=== PATIENT | female | born 1965 | race African-American/Black ===

== ENCOUNTER → 2017-03-28 | Outpatient (CLI) | payer OTHER ==
[~2017-03-28] MED LIST: AZAT50TA20 PO; CALC-463 PO; CELE200C PO; CETI10TA22 PO; CICL15CR2 TP; CLOB15CR TP; DESO15OI3 TP; DOCU-109 PO; FERR-26 PO; FLUT1DIS3 IH; FLUT9.9S NS; FURO-69 PO; GABA-585 PO; HYDR200T PO; MAGN1TAB PO; MONT10TA9 PO; OMEP20TA63 PO; PRED20TA PO; PROAIR HFA8.5 GM INH; RIZA10TA PO; TIZA4CAP3 PO; TOLT4CAP PO; WARF5TAB7 PO; [UNRECOGNIZED DRUG - OTHER]
--- NOTE | 2017-03-28 19:37 | PAIN ---
DATE OF SERVICE: 03/28/2017 INITIAL CONSULTATION FOR PAIN CLINIC CHIEF COMPLAINT: Neck and bilateral upper extremity pain, left greater than right. HISTORY OF PRESENT ILLNESS: This is a 51-year-old female who presents with history of pain in the base of the neck and shoulders radiating to the upper extremities for about 4 years. 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 The patient reports it is constant, sharp, stabbing, throbbing, shooting, radiating with numbness and tingling, cramping, aching, can even be cold sensations in the arms, again somewhat worse on the left than the right, but present bilaterally. The patient did have an MRI scan of cervical spine showing some significant multifocal degenerative disk disease, worse at C6-C7 with broad-based disk bulge, left paracentral disk protrusion, producing moderate central canal narrowing, advanced left neuroforaminal narrowing and mild right neuroforaminal narrowing as well as C5-C6 showing moderate central canal narrowing and moderate bilateral neuroforaminal narrowing from a broad-based disk bulge at that level as well. The patient reports she has had some physical therapy. She is doing exercises on her own and continues to do these without significant long-term improvement, but does feel better. She also has frequent massage performed and has even had chiropractic treatment in the past. The patient reports it wakes her from sleep. Even for a few hours she is not able to sleep because of the pain. It does affect her ability to walk as well. The patient rates her disability from 0-10, 10 being the worst, an 8 with family and home responsibilities, recreation, social activity, occupation and self care; 9 with sexual behavior, 10 with life support activities. The patient reports no complete loss of motor function, but significant fatigability especially of the left upper extremity. She has been dropping items with her left hand occasionally, but not at all times. PAST MEDICAL HISTORY: Significant for sarcoidosis, shortness of breath, history of blood clots and is on anticoagulation. PAST SURGICAL HISTORY: Includes right bunionectomy, lung biopsy, thyroid biopsy, tonsillectomy, and cystoscopy. CURRENT MEDICATIONS: Include warfarin, Celebrex, prednisone, montelukast, Zyrtec, Plaquenil, Lasix, Imuran, gabapentin, Detrol, albuterol inhaler, fluticasone inhalers, desonide, clobetasol, Maxalt, iron, Gaviscon, Colace, calcium and eyedrops. ALLERGIES: THE PATIENT IS ALLERGIC TO VIGAMOX. FAMILY HISTORY: Significant for breast cancer, prostate cancer and diabetes. SOCIAL HISTORY: The patient does not smoke, does not drink alcohol, is , lives with her spouse, has one child living at home and lives in [place], [place]. 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 REVIEW OF SYSTEMS: The patient's review of systems is positive for those items mentioned in the history of present illness. All systems review is complete, full and well documented on the patient's chart and otherwise negative other than what is documented. PHYSICAL EXAMINATION: VITAL SIGNS: Today, the patient's blood pressure is 126/71, pulse 75, respirations 18, temperature 98.2 degrees Fahrenheit, height is 69 inches, weight is 235 pounds. GENERAL: The patient is awake, alert, oriented, appropriate, has very pleasant demeanor. HEENT: Shows normocephalic, atraumatic. Extraocular movements are intact, symmetrical. Oral cavity, mucous membranes are moist and pink. Dentition is intact. NECK: Shows anterior throat supple without palpable lymphadenopathy noted. Swallow reflex is symmetrical. CHEST: Shows normal on inspection. Breath sounds are clear to auscultation bilaterally. HEART: Shows S1 and S2 clear. ABDOMEN: Soft, nontender, nondistended. No palpable organomegaly, no rebound or guarding demonstrated. BACK: Shows spine grossly in midline, normal-appearing cervical lordotic curvature, thoracic kyphotic curvature, and lumbar lordotic curvature. Cervical paraspinous musculature shows some [id number] tenderness with palpation in the middle and lower posterior cervical paraspinous muscles, but appears roughly symmetrical. With palpation in the superior medial and lateral trapezius, much more tender on the left than the right, but without significant radiation, no trigger points. The patient does show good rotational motion of the cervical spine both laterally as well as extension and flexion without significant difficulty or pain reported. EXTREMITIES: Upper extremities show deep tendon reflexes at 2+ in the biceps and triceps tendons. Motor exam is approximately 4 on a scale of 5 with left senior unix administrator strength and 5/5 on the right. Peripheral pulses are 2+, radial distribution. No peripheral edema is noted. No clubbing, no cyanosis. Upper extremities are warm and dry to touch, equal in color and appearance. Shoulder shrug is strong and intact without loss of strength on resistance, but with some minor pain reported in the base of the neck and left shoulder. With abduction has similar results with pain in the left shoulder and neck, but without radiation to the arms. IMPRESSION: 1. This is a 51-year-old female with approximately a 4-year history of pain in the base of the neck and upper extremity in a radicular fashion, worse on the left than the right. 2. MRI scan of cervical spine as noted. 3. Anticoagulation. 4. Sarcoidosis. PLAN: Options were discussed with the patient including conservative medical management with physical therapy and interventional techniques. She has done most physical therapies and continues to do exercises on her own. We discussed interventional techniques. We discussed a cervical epidural steroid injection using description as well as anatomical models to describe the procedure. The patient will first need preauthorization with her insurance provider, also check with her prescribing physician for permission to hold the Coumadin with PT and INR pending. If deemed necessary and appropriate, we will have her do this once we have heard from her primary care physician and plan for cervical epidural steroid injection once that has normalized. POOL IZAGUIRRE MD DR: RENE/mando JOB#: [id number] / [id number]
== END | disposition home or self-care (01) ==
LOC: PNCL 08:05
PROVIDERS: ATTEND Anesthesiology
DX: M50.123 Cervical disc disorder at C6-C7 level with radiculopathy (principal); M50.223 Other cervical disc displacement at C6-C7 level
CPT/HCPCS: 99214

== ENCOUNTER → 2017-04-11 | Outpatient (CLI) | payer OTHER ==
[~2017-04-11] MED LIST changes: +IOHEXOL 180 MG/ML 10 ML VIAL. ONE; +methylPREDNISolone ACETATE 40 MG/ML VIAL. ONE; +methylPREDNISolone ACETATE 80 MG/ML VIAL. ONE
--- NOTE | 2017-04-11 20:10 | PAIN ---
DATE OF SERVICE: 04/11/2017 DIAGNOSIS: Cervical radiculopathy with cervical herniated disk and cervical degenerative disk disease. HISTORY OF PRESENT ILLNESS: The patient is a 51-year-old female who returns for followup status post initial evaluation and clearance to hold her Coumadin. She had been off this now for about 6 days and Lovenox. In the meantime, she has been off of that for 24 hours now, returns with pains in the base of the neck, mostly in the right upper extremity as it was previously, radiating to the arm and hand, tingling, burning, aching, sharp and shooting radiating constant. The patient reports this is from an 8-9 on a scale of 10. No significant changes. The patient reports no new motor or sensory deficits. It does awaken her from sleep at night. She has to reposition, take pain medication or get out of bed, but she is able to get back to sleep. PHYSICAL EXAMINATION: VITAL SIGNS: The patient's blood pressure is 117/77, pulse 80, respirations 18, temperature 98.3 degrees Fahrenheit. Height is 69 inches, weight is 228 pounds. GENERAL: The patient is awake, alert, oriented, appropriate, very pleasant demeanor. HEENT: Head shows normocephalic, atraumatic. Extraocular movements are intact and symmetrical. Oral cavity, mucous membranes are moist and pink. Dentition is intact. NECK: Shows anterior throat supple without palpable lymphadenopathy noted. Swallow reflex is symmetrical. CHEST: Shows normal on inspection. Breath sounds clear to auscultation bilaterally. HEART: Shows S1 and S2 clear. ABDOMEN: Soft, nontender, nondistended. No palpable organomegaly is noted. No rebound or guarding demonstrated. BACK: Shows spine grossly midline. Cervical paraspinous musculature shows some moderate tenderness to palpation, but is symmetrical, good rotation of motion; however, both laterally as well as extension and flexion with only minor tenderness with extension. EXTREMITIES: Upper extremity showed deep tendon reflexes 2+ in the biceps and triceps tendons. Motor exam is approximately 4 on a scale of 5 with left hydrography teacher strength and 5/5 on the right. Peripheral pulses are 2+. Options were discussed with the patient. The patient's old chart was reviewed as her current medication regimen updated. Current review of systems updated today as well. We will proceed with a cervical epidural steroid injection with fluoroscopic guidance. Risks were again discussed including, but not limited to bleeding, infection, possibility of epidural hematoma and subsequent neurologic compromise, dural puncture, headaches, spinal cord and/or nerve damage, side effects of steroid medication and poor results regarding pain control. The patient understands and wishes to proceed. The patient will return to clinic in approximately 2 weeks for followup, was counseled on return appointment, activity level and side effects to be aware of. DIAGNOSIS: Cervical radiculopathy with cervical degenerative disease, cervical herniated disk. PROCEDURE: Cervical epidural steroid injection in translaminar approach at C6-C7 level using C-arm fluoroscopic guidance under sterile prep and drape using local anesthetic. MEDICATIONS INJECTED: Total 120 mg of Depo-Medrol plus 5 mL of preservative-free normal saline and 2 mL of Isovue for contrast. CONDITION AT DISCHARGE: Stable. The patient tolerated the procedure well, had no complications. POOL IZAGUIRRE MD DR: RENE/mando JOB#: [id number] / [id number]
== END | disposition home or self-care (01) ==
LOC: PNCL 07:39
PROVIDERS: ATTEND Anesthesiology
DX: M50.123 Cervical disc disorder at C6-C7 level with radiculopathy (principal); Z88.1 Allergy status to other antibiotic agents
CPT/HCPCS: 62321; J1030; J1040

== ENCOUNTER → 2017-04-25 | Outpatient (CLI) | payer OTHER ==
[~2017-04-25] MED LIST changes: -IOHEXOL 180 MG/ML 10 ML VIAL. ONE; -methylPREDNISolone ACETATE 40 MG/ML VIAL. ONE; -methylPREDNISolone ACETATE 80 MG/ML VIAL. ONE
--- NOTE | 2017-04-25 12:13 | PAIN ---
DATE OF SERVICE: 04/25/2017 DIAGNOSES: Cervical radiculopathy with cervical degenerative disk disease and cervical herniated disk. HISTORY OF PRESENT ILLNESS: The patient is a 51-year-old female who returns for followup status post cervical epidural steroid injection x 1. The patient reports about 60-70% improvement initially, but the pain very much improved by the next day after the injection with some still radiating pain with some numbness and tingling radiating into the right arm and hand, tingling in the first finger and the thumb, also in the biceps musculature, more on the right than the left at this time but present bilaterally with throbbing, aching pain, rates a 7 on a scale of 10 at its worst and at its least an average. The patient reports it is dull, tingling, shooting pain again, beginning to return to a mild extent but much improved after the first injection. The patient reports no new motor or sensory deficits or other complaints. She has been increasing her activities with greater ease and comfort, is back on her Coumadin as instructed after her last injection. The patient reports the pain is awakening her from sleep again; however, initially, she was doing much better without any awakening from sleep from the pain but now is doing better about every 4 hours or so. She can reposition, take pain medicine, get out of bed and she will get back to sleep. The patient reports no new motor or sensory deficits. No new changes. PHYSICAL EXAMINATION: VITAL SIGNS: The patient's blood pressure 120/68, pulse 76, respirations 18, temperature is 98.1 degrees Fahrenheit. Height is 69 inches, weighs 239 pounds. GENERAL: The patient is awake, alert, oriented, appropriate, very pleasant demeanor. HEENT: Head shows normocephalic, atraumatic. Extraocular movements are intact and symmetrical. Oral cavity shows mucous membranes moist and pink. Dentition is intact. NECK: Shows anterior throat supple without palpable lymphadenopathy noted. Swallow reflex is symmetrical. CHEST: Shows normal on inspection. Breath sounds clear to auscultation bilaterally. HEART: Shows S1 and S2 clear. ABDOMEN: Soft, nontender, nondistended. BACK: Shows spine grossly midline. Cervical paraspinous musculature shows symmetrical with somewhat more loose musculature on exam today than previously with less tight tenderness, but still moderately tender in the inferior aspect of the cervical paraspinous muscles bilaterally diffusely in the superior medial trapezius with upper extremities showed deep tendon reflexes at 2+ in the biceps and triceps tendons. Motor exam is approximately 4 on a scale of 5 with left supervisor files and 5/5 on the right. Biceps and triceps flexion again 4/5 left, 5/5 on the right. Peripheral pulses are 2+ radial distribution. Options were discussed with the patient and the patient's old chart was reviewed as her current medication regimen updated. Current review of systems updated today as well. We will preauthorize the patient for a second cervical epidural steroid injection. She did very well with the first, but the pain returning now in a radicular fashion as noted. The patient will be instructed with her Coumadin as far as holding this and transitioning to Lovenox as she has done previously as well. POOL IZAGUIRRE MD DR: RENE/mando JOB#: [id number] / [id number]
== END | disposition home or self-care (01) ==
LOC: PNCL 07:46
PROVIDERS: ATTEND Anesthesiology
DX: M50.10 Cervical disc disorder with radiculopathy, unspecified cervical region (principal); R20.0 Anesthesia of skin
CPT/HCPCS: 99212

== ENCOUNTER → 2017-05-09 | Outpatient (CLI) | payer OTHER ==
[~2017-05-09] MED LIST changes: +CYCL10TA2 PO; +IOHEXOL 180 MG/ML 10 ML VIAL. ONE; +methylPREDNISolone ACETATE 40 MG/ML VIAL. ONE; +methylPREDNISolone ACETATE 80 MG/ML VIAL. ONE
--- NOTE | 2017-05-09 09:08 | PAIN ---
DATE OF SERVICE: 05/09/2017 DATE OF SERVICE: 05/09/2017 DIAGNOSES: Cervical radiculopathy with cervical degenerative disk disease, cervical herniated disk. HISTORY OF PRESENT ILLNESS: This is a 51-year-old female who returns for followup status post cervical epidural steroid injection x 1. The patient reports approximately 60% improvement after the first injection. We had had her back for preauthorization and she has achieved this now for second injection. The patient would like to proceed. Still significant pain in the base of the neck and shoulders, worse on the right side than the left. The patient reports it is 6 on a scale 10 at all times, worse and easiest and average. It is aching, sharp, shooting pain in the right arm, also some low back pain is a secondary complaint. The patient reports been doing better with lying down. She is sleeping through the night. It wakens her occasionally, but she repositions and gets back to sleep. The patient reports no new motor or sensory deficits, no new bowel or bladder incontinence or other complaints. The patient has been off of her Coumadin now for 5 days and has been off of her Lovenox now for 24 hours. PHYSICAL EXAMINATION: VITAL SIGNS: Today, the patient's blood pressure is 115/76, pulse 77, respirations 18, temperature 97.9 degrees Fahrenheit. Height is 69 inches, weight is 230 pounds. GENERAL: The patient is awake, alert, oriented, appropriate, very pleasant demeanor. HEENT: Head shows normocephalic, atraumatic. Extraocular movements are intact, symmetrical. Oral cavity, mucous membranes are moist and pink. Dentition is intact. NECK: Shows anterior throat supple without palpable lymphadenopathy noted. Swallow reflex is symmetrical. CHEST: Shows normal on inspection. Breath sounds are clear to auscultation bilaterally. HEART: Shows S1 and S2 clear, no murmurs auscultated. ABDOMEN: Obese, soft, nontender, nondistended. BACK: Shows spine grossly midline. Cervical paraspinous musculature shows some symmetrical musculature on inspection with palpation shows some moderate tenderness diffusely in the middle and lower distribution of paraspinous muscles in the cervical distribution, also superiorly in the trapezius, slightly more on the right than the left, but again symmetrical without trigger points, without radiation of pain. The patient shows good rotational motion of cervical spine, both laterally as well as full extension and full forward flexion without significant limitation. EXTREMITIES: Upper extremities showed deep tendon reflexes 2+ in the biceps and triceps tendons. Motor exam is strong with electric range preparer strength rated at 5/5 as is biceps and triceps flexion on the right. On the left, it is 4 on a scale 5 with electric range preparer strength, biceps and triceps flexion. Options were discussed with the patient and the patient's old chart was reviewed as her current medication regimen updated. Current review of systems updated today as well. We will proceed with a second cervical epidural steroid injection today with fluoroscopic guidance. Risks were again discussed including, but not limited to bleeding, infection, possibility of epidural hematoma and subsequent neurologic compromise, dural puncture, headaches, spinal cord and/or nerve damage, side effects of steroid medication and poor results regarding pain control. The patient understands and wishes to proceed. The patient will return to clinic in approximately 2 weeks for followup. She was counseled as to return appointment, activity level and side effects to be aware of. DIAGNOSES: Cervical radiculopathy with cervical herniated disk and cervical degenerative disk disease. PROCEDURE: Cervical epidural steroid injection in translaminar approach at C6-C7 using C-arm fluoroscopic guidance under sterile prep and drape and local anesthetic. MEDICATIONS INJECTED: Total of 120 mg Depo-Medrol plus 5 mL of preservative-free normal saline and 2 mL of Isovue for contrast. CONDITION AT DISCHARGE: Stable. The patient tolerated procedure well, had no complications. POOL IZAGUIRRE MD DR: RENE/mando JOB#: [id number] / [id number]
== END | disposition home or self-care (01) ==
LOC: PNCL 07:46
PROVIDERS: ATTEND Anesthesiology
DX: M50.123 Cervical disc disorder at C6-C7 level with radiculopathy (principal); Z88.1 Allergy status to other antibiotic agents
CPT/HCPCS: 62321; J1030; J1040

== ENCOUNTER → 2017-11-16 | Outpatient (CLI) | payer OTHER | END | disposition home or self-care (01) | LOC: PNCL 08:57 | DX: M50.10 Cervical disc disorder with radiculopathy, unspecified cervical region (principal); M51.16 Intervertebral disc disorders with radiculopathy, lumbar region | CPT/HCPCS: 99212 ==

== ENCOUNTER → 2017-12-05 | Outpatient (CLI) | payer OTHER ==
[~2017-12-05] MED LIST changes: -AZAT50TA20 PO; -CALC-463 PO; -CELE200C PO; -CETI10TA22 PO; -CICL15CR2 TP; -CLOB15CR TP; -CYCL10TA2 PO; -DESO15OI3 TP; -DOCU-109 PO; -FERR-26 PO; -FLUT1DIS3 IH; -FLUT9.9S NS; -FURO-69 PO; -GABA-585 PO; -HYDR200T PO; +IOHEXOL 180 MG/ML 10 ML VIAL.; -IOHEXOL 180 MG/ML 10 ML VIAL. ONE; -MAGN1TAB PO; -MONT10TA9 PO; -OMEP20TA63 PO; -PRED20TA PO; -PROAIR HFA8.5 GM INH; -RIZA10TA PO; -TIZA4CAP3 PO; -TOLT4CAP PO; -WARF5TAB7 PO; -[UNRECOGNIZED DRUG - OTHER]; +methylPREDNISolone ACETATE 40 MG/ML VIAL.; -methylPREDNISolone ACETATE 40 MG/ML VIAL. ONE; +methylPREDNISolone ACETATE 80 MG/ML VIAL.; -methylPREDNISolone ACETATE 80 MG/ML VIAL. ONE
== END ==
LOC: PNCL 10:12
DX: M50.123 Cervical disc disorder at C6-C7 level with radiculopathy (principal)
CPT/HCPCS: 62321; J1030; J1040; Q9965

== ENCOUNTER → 2017-12-27 | Outpatient (CLI) | payer OTHER | END | disposition home or self-care (01) | LOC: PNCL 10:36 | DX: M50.10 Cervical disc disorder with radiculopathy, unspecified cervical region (principal); M51.16 Intervertebral disc disorders with radiculopathy, lumbar region; M25.512 Pain in left shoulder | CPT/HCPCS: 99212 ==

== ENCOUNTER → 2021-03-02 | Outpatient (CLI) | payer OTHER ==
[~2021-03-02] MED LIST changes: +ALBU2.5V8 INH; +AZAT50TA20 PO; +BUDE10.2 IH; +CALC-463 PO; +CARB15DR3 EACHEYE; +CELE100C PO; +CELE200C PO; +CETI10TA74 PO; +CICL15CR2 TP; +CLOB15CR TP; +CYCL10TA2 PO; +CYCL1DRO EACHEYE; +DESO15OI3 TP; +DEXT15DR5 EACHEYE; +DOCU-109 PO; +FERR325T14 PO; +FLUT1DIS3 IH; +FLUT9.9S NS; +FURO-69 PO; +GABA-585 PO; +HYDR200T71 PO; -IOHEXOL 180 MG/ML 10 ML VIAL.; +MAGN1TAB PO; +MAGN400C PO; +MONT10TA49 PO; +OMEP20TA63 PO; +OXYB5TAB10 PO; +PRED20TA PO; +RIVA20TA2 PO; +RIZA10TA PO; +TIZA4CAP3 PO; +TOLT4CAP PO; +WARF-31 PO; +[UNRECOGNIZED DRUG - OTHER]; +diclofenac gel TOP; -methylPREDNISolone ACETATE 40 MG/ML VIAL.; -methylPREDNISolone ACETATE 80 MG/ML VIAL.
--- NOTE | 2021-03-02 11:11 | PDOC1 ---
INITIAL PAIN CONSULT DATE OF SERVICE: DOS: DATE: 03/02/21 TIME: 11:03 CHIEF COMPLAINT: Chief Complaint: Neck and bilateral upper extremity pain Low back and left lower extremity pain HISTORY OF PRESENT ILLNESS: 55-year-old female resents with history of pain base the neck and shoulders upper extremities left greater than right but present bilaterally also low back pain left lower extremity pain for about 3 months not the result of any specific injury or accident that she is aware of but has had significant pain the base the neck and shoulders and had this many years ago as well with good response to interventional treatments by her report. Patient reports the pain in the base of neck and shoulders upper extremities rating the posterior deltoid posterior triceps into the forearms with anterior and posteriorly as well as the biceps into the hand and finger some numbness and tingling in the thumb and first finger on both hands patient reports difficulty with fine motor movements but has no loss of motor function she has not been dropping any items with her hands patient is had physical therapy in the past nothing recently but is been doing stretching strength exercises on her own that she learned previously patient reports it wakes her up through the night many times does not affect her bowel bladder control does affect her ability to walk with pain in the low back and left leg patient reports pain is constant sharp stabbing throbbing shooting in the neck and shoulders upper extremities with tingling and numbness in the hands and arms as well. She describes her low back is aching and cramping with radiating pain in left lower extremity mostly in the posterior gluteus lateral thigh and anterior thigh. Patient rates her disability rating 0-10 10 being the worst is an 8 family home responsibilities recreation social activity sexual preoccupation self-care and life support activities. Patient did have MRI scan of the cervical and lumbar spine cervical spine showing most advanced degenerative changes C5-6 and C6-7 with associated reversal of the usual cervical lordosis left posterior disc protrusion with associated marginal osteophytes resulting in left C7 foraminal stenosis C5-6 with encroachment on the C6 neuroforamina without naomi foraminal stenosis lumbar spine showing mild loss of disc height at L4-5 and advanced hypertrophic degenerative facet changes with moderate to severe hypertrophic degenerative changes at L5-S1 as well. PAST MEDICAL HISTORY: PMH: Arthritis, gastroesophageal reflux, shortness of breath, sickle cell trait, sarcoidosis PREVIOUS SURGERIES: Past Surgical Hx: Bunionectomy, thyroid biopsy, lung biopsy, tonsillectomy CURRENT MEDICATIONS: Current Meds: Active Scripts Medications Dose Route/Sig Max Daily Dose Days Date Category Magnesium (Magnesium Oxide) 400 Mg Capsule 1 Cap PO BID 11/16/17 Reported Restasis (Cyclosporine) 1 Each Droperette 1 Drop EACHEYE BID 11/16/17 Reported Artificial Tears Eye Drops (Dextran 70/Hypromellose) 15 Ml Drops 1 Drop EACHEYE QID 11/16/17 Reported Symbicort 160-4.5 Mcg Inhaler (Budesonide/Formoterol Fumarate) 10.2 Gm Hfa.aer.ad 2 Puff IH BID 11/16/17 Reported Cyclobenzaprine Hcl 10 Mg Tablet 1 Tab PO TID 05/09/17 Reported Ciclopirox (Ciclopirox Olamine) 15 Gm Cream..g. 15 Gm TP PRN 03/28/17 Reported [gnc supp] DAILY 03/28/17 Reported Calcium + Vitamin D3 Gummies (Calcium Phosphate Trib/Vit D3) 1 Each Tab.chew 3 Each PO DAILY 03/28/17 Reported Colace (Docusate Sodium) 100 Mg Capsule 100 Mg PO DAILY 03/28/17 Reported Gaviscon Es Tablet Chew (Magnesium Carbonate/Al Hydrox) 1 Each Tab.chew 1 Each PO PRN 03/28/17 Reported Ferrous Sulfate 325 Mg Tablet 1 Tab PO BID 03/28/17 Reported Maxalt (Rizatriptan Benzoate) 10 Mg Tablet 10 Mg PO PRN 03/28/17 Reported Clobetasol Propionate 15 Gm Cream..g. 1 Karen TP BID 03/28/17 Reported Desonide 15 Gm Oint...g. 15 Gm TP 03/28/17 Reported Zanaflex (Tizanidine Hcl) 4 Mg Capsule 4 Mg PO QID PRN 03/28/17 Reported Proair Hfa Inhaler (Albuterol Sulfate) 8.5 Gm Hfa.aer.ad 2 Puff INH PRN Q6HRS PRN 03/28/17 Reported Flonase Allergy Relief (Fluticasone Propionate) 9.9 Ml [place].susp 1 Sprays NS BID 03/28/17 Reported Montelukast Sodium Tablet (Montelukast Sodium) 10 Mg Tablet 10 Mg PO HS 03/28/17 Reported Zyrtec (Cetirizine Hcl) 10 Mg Tablet 1 Tab PO DAILY 03/28/17 Reported Detrol La (Tolterodine Tartrate) 4 Mg Cap.er.24h 1 Cap PO DAILY 03/28/17 Reported Neurontin (Gabapentin) 100 Mg Capsule 100 Mg PO TID 03/28/17 Reported Prilosec Otc (Omeprazole Magnesium) 20 Mg Tablet.dr 20 Mg PO BID 03/28/17 Reported Plaquenil (Hydroxychloroquine Sulfate) 200 Mg Tablet 200 Mg PO BID 03/28/17 Reported Prednisone 20 Mg Tablet 5 Mg PO DAILY 03/28/17 Reported Warfarin Sodium 5 Mg Tablet 9 Mg PO DAILY 03/28/17 Reported ALLERGIES; Allergies: Coded Allergies: moxifloxacin HCl (Verified Allergy, Mild, swelling, 08/28/13) FAMILY HISTORY: Family Hx: Diabetes, cancer, hypertension SOCIAL HISTORY: Social Hx: Patient is nondrug alcohol does not smoke not use any illegal illicit recreational drugs is lives with his spouse is locally in [facility] REVIEW OF SYSTEMS: ROS: Positive for those items mentioned in history of present illness, all systems are reviewed, otherwise negative ,and are complete full and well-documented on patient's chart. PHYSICAL EXAM: VS: Blood pressure is 113/65 pulse 61 respirations 16 temperature is 98.0 F height is 5 feet 9 inches weight is 230 cubic PE: PHYSICAL EXAMINATION: GENERAL: The patient is awake, alert, oriented, appropriate, very pleasant in demeanor. HEENT: Shows normocephalic, atraumatic. Extraocular movements are intact and symmetrical. Oral cavity: Mucous membranes moist and pink. Dentition is intact. NECK: Shows anterior throat supple without palpable lymphadenopathy noted. Swallow reflex symmetrical. CHEST: Shows normal on inspection. Breath sounds are clear bilaterally, distant but no rales rhonchi or wheezes auscultated bilaterally. HEART: Shows S1, S2 clear. No murmurs auscultated. ABDOMEN: Soft, nontender, nondistended, obese. No palpable organomegaly is noted. No rebound or guarding demonstrated. BACK: Shows spine grossly in the midline. Normal-appearing cervical lordotic curvature. Cervical paraspinous muscles show symmetrical inspection on palpation some moderate tenderness diffusely throughout the upper middle lower distribution the paraspinous muscles bilaterally slightly worse on the left than the right also into the superior medial trapezius more on the left than the right but without specific trigger points atrophy hypertrophy or asymmetry. Patient shows full rotation of motion of the cervical spine both laterally greater than 45 degrees closer to 90 degrees as well as full extension full forward flexion without significant exacerbation of pain. There is slightly increased thoracic kyphosis, some minor flattening of the lumbar lordotic curvature. Lumbar paraspinous muscles show symmetrical on inspection, on palpation shows some moderate tenderness diffusely throughout the upper, middle and lower distribution of the paraspinous muscles bilaterally and also into the lower thoracic paraspinous musculature, firm and tender, but without specific trigger points, without radiation of pain. The patient has good rotational motion of the lumbar spine, both laterally as well as extension and flexion without significant difficulty. No tenderness over the spinous processes, sacrum or sacroiliac regions. EXTREMITIES: Lower extremities show deep tendon reflexes 1+ in the patellar and tendo calcaneus tendons. Motor exam is 5 on a scale of 5 with right dorsiflexion, extension, quadriceps and hamstring flexion and 4/5 on the left. Peripheral pulses are 1+ posterior tibial. No peripheral edema is noted bilaterally. Lower extremities are warm and dry to touch, equal in color and appearance. Upper extremity show deep tendon reflexes 2+ in the bicep and tricep tendons, motor exam is 4 to scale 5 with left retail shift leader strength bicep and tricep flexion and 5 out of 5 on the right. Peripheral pulses are 2+ radial no peripheral edema is noted. SKIN: Shows warm and dry, good turgor. No edema. No sores, rashes or bruising throughout. IMPRESSION: Impression: 55-year-old female with approximate 3-month history increasing pain base of neck and shoulders upper extremities and radicular fashion worse on the left than the right Low back and left lower extremity pain in a radicular fashion as well. MRI scans lumbar and cervical spines as noted Arthritis History of sickle cell trait History of sarcoidosis Plan: Options were discussed with the patient including conservative medical management is continued physical therapies and interventional techniques. Patient elects interventional techniques. We will check with her recorder helper seismograph first to hold Xarelto for 3 days prior to potential interventional injection cervical epidural steroid injection. If deemed safe and appropriate, will have patient return and plan on cervical epidural steroid injection at that time. In the meantime, will try Medrol Dosepak, patient was given instructions well side effects aware with the medication. POOL IZAGUIRRE MD Mar 02, 2021 11:11
== END | disposition home or self-care (01) ==
LOC: PNCL 10:53
PROVIDERS: ATTEND Anesthesiology
DX: M79.602 Pain in left arm (principal); M79.601 Pain in right arm; M79.605 Pain in left leg; M19.90 Unspecified osteoarthritis, unspecified site; K21.9 Gastro-esophageal reflux disease without esophagitis; Z79.899 Other long term (current) drug therapy; Z98.890 Other specified postprocedural states; Z82.49 Family history of ischemic heart disease and other diseases of the circulatory system; Z83.3 Family history of diabetes mellitus; Z88.8 Allergy status to other drugs, medicaments and biological substances
CPT/HCPCS: 99214; G0463

== ENCOUNTER → 2021-03-19 | Outpatient (CLI) | payer OTHER ==
[~2021-03-19] MED LIST changes: +IOHEXOL 180 MG/ML 10 ML VIAL. ONE; +methylPREDNISolone ACETATE 80 MG/ML VIAL. ONE
--- NOTE | 2021-03-19 08:26 | PDOC ---
Progress Note - Pain Clinic Date of Service: DOS: DATE: 03/19/21 TIME: 08:22 Diagnosis: Dx: Cervical radiculopathy with cervical degenerative disease and cervical herniated disc Lumbar radiculopathy with lumbar degenerative disc disease History or Present Illness: HPI: 55-year-old female returns for follow-up status post evaluation and clearance to hold Xarelto she been off her Xarelto now for 3 days reports still significant pain the base of neck and left shoulder left upper extremity rating into the posterior deltoid anterior deltoid into the biceps and triceps in the lateral aspect of the forearm into the thumb and first finger patient reports still tingling burning cramping radiating can be constant with activity unbearable at times with repetitive motions and weightbearing driving a car with her left arm disturbs her sleep about every 3-4 hours patient reports is a 6 on a scale of 10 is worst average and least is a 6 today as well. Patient reports occasional pain on the right shoulder but mostly in the left and on the left arm. Patient reports no focal deficits but significant fatigability with left upper extremity with repetitive motion and weightbearing. Physical Exam: VS: Blood pressure is 144/79 pulse 64 respirations 18 temperature 98.1 F height 5 feet 9 inches weight is 233 pounds PE: PHYSICAL EXAMINATION: GENERAL: The patient is awake, alert, oriented, appropriate, very pleasant in demeanor HEENT: Shows normocephalic, atraumatic. Extraocular movements are intact and symmetrical. Oral cavity: Mucous membranes moist and pink. Dentition is intact. NECK: Shows anterior throat supple without palpable lymphadenopathy noted. Swallow reflex symmetrical. CHEST: Shows normal on inspection. Breath sounds are clear bilaterally, no rales or rhonchi. HEART: Shows S1, S2 clear. No murmurs auscultated. ABDOMEN: Soft, nontender, nondistended, obese. No palpable organomegaly is noted. BACK: Shows spine grossly in the midline. Normal-appearing cervical lordotic curvature. Cervical paraspinous muscles show symmetrical with inspection on palpation some moderate tenderness diffusely more on the left than the right in the inferior aspect the cervical paraspinous musculature as well as in the superior medial trapezius patient is full rotation motion cervical spine both laterally greater than 45 degrees closer to 90 degrees as well as full extension full forward flexion without significant difficulty or pain reported. There is slightly increased thoracic kyphosis, some minor flattening of the lumbar lordotic curvature. EXTREMITIES: Upper extremities show deep tendon reflexes 2+ in the biceps and tr iceps tendons. Motor exam is 5 on a scale of 5 with right enterprise manager, biceps and triceps flexion and 4/5 on the left. Peripheral pulses are 2+ radial. No peripheral edema is noted bilaterally. Upper extremities are warm and dry to touch, equal in color and appearance. SKIN: Shows warm and dry, good turgor. No edema. No sores, rashes or bruising throughout. Procedure: Procedure: Options discussed with the patient. Patient's old chart was reviewed as her current medication regimen updated current review of systems updated today as well. We will proceed with a cervical epidural steroid injection stable fluoroscopic guidance. Risks were discussed including but not limited to: Bleeding, infection, possibility of epidural hematoma and subsequent neurological compromise, dural puncture, headaches, spinal cord and/or nerve damage, side effects of steroid medication, and poor results regarding pain control. Patient understands and wished to proceed. Patient will return to the clinic in approximate 2 weeks for follow-up, was counseled as to return appointment active level and side effects to be aware of. Patient will restart Xarelto tomorrow March 20 Medication Injected: Med Injected: Procedure cervical epidural steroid injection at the C6-7 level, using local anesthetic under sterile prep and drape using C-arm fluoroscopic guidance under local anesthesia medications injected ;120 mg Depo-Medrol +5 mL normal saline and 2 mL contrast; condition at discharge is stable patient tolerated procedure well. and had no complications Condition at Discharge: Condition at Discharge: Condition at discharge stable, patient already the procedure well and had no complications. POOL IZAGUIRRE MD Mar 19, 2021 08:26
--- NOTE | 2021-03-19 08:27 | PDOC4 ---
Procedure Note: ICD 10 Code: ICD 10 Code: M54.12 M50.30 M50.21 Procedure Note: Patient was consented for cervical epidural steroid injection with fluoroscopic guidance. Risks were discussed including but not limited to: Bleeding, infection, possibility of epidural hematoma and subsequent neurological compromise, dural puncture, headaches, spinal cord and/or nerve damage, side effects of steroid medication, and poor results regarding pain control. Patient understands and wished to proceed. Procedure cervical epidural steroid injection at the C6-7 level, using local a nesthetic under sterile prep and drape using C-arm fluoroscopic guidance under local anesthesia medications injected ;120 mg Depo-Medrol +5 mL normal saline and 2 mL contrast; condition at discharge is stable patient tolerated procedure well. and had no complications POOL IZAGUIRRE MD Mar 19, 2021 08:27
== END | disposition home or self-care (01) ==
LOC: PNCL 08:03
PROVIDERS: ATTEND Anesthesiology
DX: M50.123 Cervical disc disorder at C6-C7 level with radiculopathy (principal); M50.223 Other cervical disc displacement at C6-C7 level; M51.16 Intervertebral disc disorders with radiculopathy, lumbar region; Z79.899 Other long term (current) drug therapy; Z88.8 Allergy status to other drugs, medicaments and biological substances
CPT/HCPCS: 62321; J1040; Q9965

== ENCOUNTER → 2021-04-02 | Outpatient (CLI) | payer OTHER ==
[~2021-04-02] MED LIST changes: +CYAN100072 PO; -IOHEXOL 180 MG/ML 10 ML VIAL. ONE; +PYRI200T3 PO; +[UNRECOGNIZED DRUG - OTHER]; -methylPREDNISolone ACETATE 80 MG/ML VIAL. ONE
--- NOTE | 2021-04-02 09:26 | PDOC ---
Progress Note - Pain Clinic Date of Service: DOS: DATE: 04/02/21 TIME: 09:23 Diagnosis: Dx: Cervical radiculopathy with cervical degenerative disease and cervical herniated disc History or Present Illness: HPI: 55-year-old female returns for follow-up status post cervical epidural steroid traction x1. Patient reports about 90% improvement for the first few days then the pain began to return in the left upper extremity with spasms in the left arm which is a new finding she had some aching and pain and occasional twitching in the arm but now spasticity in the left bicep and forearm as she describes the patient reports is aching sharp shooting stabbing spasming tingling radiating can be constant unbearable in the left upper extremity patient rates as a 5 on a scale 10 is worst average and least is a 5 today patient reports initially doing much better with first few days sleeping much better at night was quite pleased with her progress but now the pain is returning and again new finding of significant spasms in the left arm patient reports no motor or sensory deficits no bowel or bladder incontinence. Physical Exam: VS: Blood pressure is 120/79 pulse 67 respirations 18 temperature 97.9 F weight is 235 pounds PE: PHYSICAL EXAMINATION: GENERAL: The patient is awake, alert, oriented, appropriate, very pleasant in demeanor HEENT: Shows normocephalic, atraumatic. Extraocular movements are intact and symmetrical. Oral cavity: Mucous membranes moist and pink. Dentition is intac t. NECK: Shows anterior throat supple without palpable lymphadenopathy noted. Swallow reflex symmetrical. CHEST: Shows normal on inspection. Breath sounds are clear bilaterally, distant but no rales or rhonchi. HEART: Shows S1, S2 clear. No murmurs auscultated. ABDOMEN: Soft, nontender, nondistended, obese. No palpable organomegaly is noted. BACK: Shows spine grossly in the midline. Normal-appearing cervical lordotic curvature. There is slightly increased thoracic kyphosis, some minor flattening of the lumbar lordotic curvature. EXTREMITIES: Upper extremities show deep tendon reflexes 2+ in the biceps and triceps tendons. Motor exam is 5 on a scale of 5 with right content engineer strength, biceps and triceps flexion and 4/5 on the left. Peripheral pulses are 2+ radial. No peripheral edema is noted bilaterally. Upper extremities are warm and dry to touch, equal in color and appearance. SKIN: Shows warm and dry, good turgor. No edema. No sores, rashes or bruising throughout. Procedure: Procedure: Options discussed with the patient. Patient chart reviews her current medication regimen updated current review of systems updated today as well. We will have patient hold her Xarelto for 3 days once again prior to return for a second cervical epidural steroid injection. Patient continue with stretching strength exercises in the meantime as well as oral analgesics as currently. Medication Injected: Med Injected: None Condition at Discharge: Condition at Discharge: Condition at discharge is stable. POOL IZAGUIRRE MD Apr 02, 2021 09:26
== END | disposition home or self-care (01) ==
LOC: PNCL 08:40
PROVIDERS: ATTEND Anesthesiology
DX: M50.10 Cervical disc disorder with radiculopathy, unspecified cervical region (principal); Z79.899 Other long term (current) drug therapy; Z88.8 Allergy status to other drugs, medicaments and biological substances
CPT/HCPCS: 99212; G0463

== ENCOUNTER → 2021-04-08 | Outpatient (CLI) | payer OTHER ==
[~2021-04-08] MED LIST changes: +IOHEXOL 180 MG/ML 10 ML VIAL. ONE; +methylPREDNISolone ACETATE 80 MG/ML VIAL. ONE
--- NOTE | 2021-04-08 14:39 | PDOC ---
Progress Note - Pain Clinic Date of Service: DOS: DATE: 04/08/21 TIME: 14:35 Diagnosis: Dx: Cervical radiculopathy with cervical degenerative disease and cervical herniated disc Lumbar radiculopathy with lumbar degenerative disc disease History or Present Illness: HPI: 55-year-old female returns in follow-up status post cervical epidural steroid injection x1. Patient reports about 80% improvement initially the pain returning now in the neck and shoulders mostly on the left side but also pain in the low back and the right lower extremity radiating cramping in the posterior gluteus and lateral medial thigh patient reports pain in the neck and left sh oulder is her chief complaint with pain rating to the arm and hand with numbness and tingling in the thumb and the first and second fingers patient reports the pain is a 6 on scale 10 is worst average and least over the past week and is a 6 today. Patient reports that sharp shooting pains described as tingling and cramping radiating in the left upper extremity. Patient reports some moderate weakness with dropping items with picking things up with the left hand and difficulty with using fine motor movement such as buttons or snaps. Patient reports no bowel or bladder incontinence or other deficits. Physical Exam: VS: Blood pressure is 134/89 pulse 76 respirations 1895 foot 9 inches weight is 234 pounds. PE: PHYSICAL EXAMINATION: GENERAL: The patient is awake, alert, oriented, appropriate, very pleasant in demeanor HEENT: Shows normocephalic, atraumatic. Extraocular movements are intact and symmetrical. Oral cavity: Mucous membranes moist and pink. Dentition is intact. NECK: Shows anterior throat supple without palpable lymphadenopathy noted. Swallow reflex symmetrical. CHEST: Shows normal on inspection. Breath sounds are clear bilaterally, distant but no rales or rhonchi or wheezes. HEART: Shows S1, S2 clear. No murmurs auscultated. ABDOMEN: Soft, nontender, nondistended, obese. No palpable organomegaly is noted. BACK: Shows spine grossly in the midline. Normal-appearing cervical lordotic curvature. There is slightly increased thoracic kyphosis, some minor flattening of the lumbar lordotic curvature. Lumbar paraspinous muscles show symmetrical on inspection, on palpation shows some moderate tenderness diffusely throughout the upper, middle and lower distribution of the paraspinous muscles without specific trigger points, without radiation of pain. The patient has good rotational motion of the lumbar spine, both laterally as well as extension and flexion without significant difficulty. No tenderness over the spinous processes, sacrum or sacroiliac regions. EXTREMITIES: Lower extremities show deep tendon reflexes 1+ in the patellar and tendo calcaneus tendons. Motor exam is 4 on a scale of 5 with right dorsiflexion, extension, quadriceps and hamstring flexion and 5/5 on the left. Peripheral pulses are 1+ posterior tibial. No peripheral edema is noted bilaterally. Lower extremities are warm and dry to touch, equal in color and appearance. Upper extremity show deep tendon reflexes 2+ in the bicep tricep tendons, motor exam is strong with approximately 4-5 maintenance shop manager strength bicep tricep flexion on the left and 5 out of 5 on the right. Peripheral pulses are 2+ radial, no peripheral edema is noted bilaterally. SKIN: Shows warm and dry, good turgor. No edema. No sores, rashes or bruising throughout. Procedure: Procedure: Options were discussed with the patient. Patient chart reviews her current medication regimen updated current review of systems updated today as well. We will proceed with a cervical epidural steroid injection today with fluoroscopic guidance. Risks were discussed including but not limited to: Bleeding, infection, possibility of epidural hematoma and subsequent neurological compromise, dural puncture, headaches, spinal cord and/or nerve damage, side effects of steroid medication, and poor results regarding pain control. Patient understands and wished to proceed. Patient return to the clinic in approximate 2 weeks for follow-up, was counseled as return appointment, activity level, and side effect to be aware of. Medication Injected: Med Injected: Procedure cervical epidural steroid injection at the C6-7 level, using local anesthetic under sterile prep and drape using C-arm fluoroscopic guidance under local anesthesia medications injected ;120 mg Depo-Medrol +5 mL normal saline and 2 mL contrast; condition at discharge is stable patient tolerated procedure well. and had no complications Condition at Discharge: Condition at Discharge: Condition at discharge is stable, patient tolerated the procedure well and had no complications. POOL IZAGUIRRE MD Apr 08, 2021 14:39
--- NOTE | 2021-04-08 14:40 | PDOC4 ---
Procedure Note: ICD 10 Code: ICD 10 Code: M54.12 M5 0.30 M50.21 Procedure Note: Patient was consented for cervical epidural steroid injection with fluoroscopic guidance. Risks were discussed including but not limited to: Bleeding, infection, possibility of epidural hematoma and subsequent neurological compromise, dural puncture, headaches, spinal cord and/or nerve damage, side effects of steroid medication, and poor results regarding pain control. Patient understands and wished to proceed. Procedure cervical epidural steroid injection at the C6-7 level, using local anesthetic under sterile prep and drape using C-arm fluoroscopic guidance under local anesthesia medications injected ;120 mg Depo-Medrol +5 mL normal saline and 2 mL contrast; condition at discharge is stable patient tolerated procedure well. and had no complications POOL IZAGUIRRE MD Apr 08, 2021 14:40
== END | disposition home or self-care (01) ==
LOC: PNCL 13:36
PROVIDERS: ATTEND Anesthesiology
DX: M50.10 Cervical disc disorder with radiculopathy, unspecified cervical region (principal); M51.16 Intervertebral disc disorders with radiculopathy, lumbar region; Z79.899 Other long term (current) drug therapy; Z88.8 Allergy status to other drugs, medicaments and biological substances
CPT/HCPCS: 62321; J1040; Q9965

== ENCOUNTER → 2021-04-23 | Outpatient (CLI) | payer OTHER ==
[~2021-04-23] MED LIST changes: -IOHEXOL 180 MG/ML 10 ML VIAL. ONE; -methylPREDNISolone ACETATE 80 MG/ML VIAL. ONE
--- NOTE | 2021-04-23 09:19 | PDOC ---
Progress Note - Pain Clinic Date of Service: DOS: DATE: 04/23/21 TIME: 09:15 Diagnosis: Dx: Cervical radiculopathy with cervical degenerative disease and cervical herniated disc Lumbar radiculopathy with lumbar degenerative disc disease History or Present Illness: HPI: 55-year-old female returns for follow-up status post cervical epidural steroid injection x2. Patient reports about 80% improvement overall in the neck and left upper extremity and is very pleased with her progress patient reports that he increase activities greater ease and comfort using the left arm sleeping better doing household activities work activities with greater ease and comfort as well as travel with greater ease and comfort and using her left arm with repetitive motion with greater ease patient reports her pain is a 3 on scale 10 average worst and least is a 3 today patient scribes as tingling and cramping can be tight in the left leg as well patient also reports some low back pain with pain in the left lower extremity as well but this is gotten better with time also patient reports is mostly in the lateral thigh and posterior gluteus region again much better since her last visit. Patient reports no bowel or bladder incontinence no motor or sensory deficits. Physical Exam: VS: Blood pressure is 134/89 pulse 67 respirations 18 temperature 98.2 F height is 5 feet 9 inches weight is 234 pounds PE: PHYSICAL EXAMINATION: GENERAL: The patient is awake, alert, oriented, appropriate, very pleasant in demeanor. HEENT: Shows normocephalic, atraumatic. Extraocular movements are intact and symmetrical. Oral cavity: Mucous membranes moist and pink. Dentition is intact. NECK: Shows anterior throat supple without palpable lymphadenopathy noted. Swallow reflex symmetrical. CHEST: Shows normal on inspection. Breath sounds are clear bilaterally, distant but no rales or rhonchi auscultated. HEART: Shows S1, S2 clear. No murmurs auscultated. ABDOMEN: Soft, nontender, nondistended, obese. No palpable organomegaly is noted. BACK: Shows spine grossly in the midline. Normal-appearing cervical lordotic curvature. Cervical paraspinous muscles show symmetrical inspection, on palpation some moderate tenderness diffusely but only diffusely in the low cervical distribution into the superior medial trapezius but without radiation without atrophy hypertrophy or asymmetry. Patient shows full rotation motion cervical spine both laterally greater than 45 degrees closer to 90 degrees right and left as well as full extension full forward flexion without pain reported. There is slightly increased thoracic kyphosis, some minor flattening of the nava mbar lordotic curvature. Lumbar paraspinous muscles show symmetrical on inspection, on palpation shows some moderate tenderness diffusely throughout the upper, middle and lower distribution of the paraspinous muscles without specific trigger points, without radiation of pain. The patient has good rotational motion of the lumbar spine, both laterally as well as extension and flexion without significant difficulty. EXTREMITIES: Lower extremities show deep tendon reflexes 1 in the patellar and tendo calcaneus tendons. Motor exam is 5 on a scale of 5 with right dorsiflexion, extension, quadriceps and hamstring flexion and 5/5 on the left. Peripheral pulses are 1+ posterior tibial. No peripheral edema is noted bilaterally. Lower extremities are warm and dry to touch, equal in color and appearance. Upper extremities show deep tendon reflexes at 2+ in the bicep tricep tendons motor exam is 5 out of 5 on the right and 4 5 with left tank terminal gauger strength bicep and tricep flexion is 5 out of 5 bilaterally however. Patient's shoulder shrug shows intact without loss of strength on resistance bilaterally. SKIN: Shows warm and dry, good turgor. No edema. No sores, rashes or bruising throughout. Procedure: Procedure: Options were discussed with the patient., Patient chart was reviewed his case regimen updated current review of systems updated today as well. We will hold on any further injections at this time and as patient is taking Xarelto will have her continue with this as well. Patient was informed that if pain returns or becomes worse in the left upper extremity and/or the low back and left lower extremity to return on as-needed basis for evaluation at that time. Patient continue with stretching strength exercise as well as exercise as tolerated. Medication Injected: Med Injected: None Condition at Discharge: Condition at Discharge: Condition at discharge is stable. POOL IZAGUIRRE MD Apr 23, 2021 09:19
== END | disposition home or self-care (01) ==
LOC: PNCL 08:19
PROVIDERS: ATTEND Anesthesiology
DX: M50.10 Cervical disc disorder with radiculopathy, unspecified cervical region (principal); M51.16 Intervertebral disc disorders with radiculopathy, lumbar region; Z79.899 Other long term (current) drug therapy; Z88.8 Allergy status to other drugs, medicaments and biological substances
CPT/HCPCS: 99212; G0463

== ENCOUNTER → 2021-06-24 | Outpatient (CLI) | payer OTHER ==
[~2021-06-24] MED LIST changes: +CYCL10TA19 PO; -CYCL10TA2 PO; +IOHEXOL 180 MG/ML 10 ML VIAL. ONE; +methylPREDNISolone ACETATE 40 MG/ML VIAL. ONE; +methylPREDNISolone ACETATE 80 MG/ML VIAL. ONE
--- NOTE | 2021-06-24 14:14 | PDOC ---
Progress Note - Pain Clinic Date of Service: DOS: DATE: 06/24/21 TIME: 14:11 Diagnosis: Dx: Lumbar radiculopathy with lumbar degenerative disease Cervical radiculopathy with cervical degenerative disease and cervical herniated disc History or Present Illness: HPI: 56-year-old female returns for follow-up status post cervical epidural steroid injection on April 08, 2021 patient did very well but 80% improvement is still lasting patient with chief complaint average low back and bilateral lower extremity pain left greater than right patient reports in the posterior gluteus lateral thighs anterior thighs medial thighs medial lower legs into the feet on the left side and into the calf on the left side patient reports a 6 on scale 10 is worst average and least is a 6 today patient describes aching tingling burning cramping stabbing radiating can be constant with working activity better with rest laying down or sitting but still wakes her from sleep about once or twice a night. Patient reports no bowel or bladder incontinence no loss of function. Physical Exam: VS: Blood pressure is 136/78 pulse 67 respirations 18 temperature 97.9 F is 69 inches weight is 242 pounds PE: PHYSICAL EXAMINATION: GENERAL: The patient is awake, alert, oriented, appropriate, very pleasant demeanor HEENT: Shows normocephalic, atraumatic. Extraocular movements are intact and symmetrical. Oral cavity: Mucous membranes moist and pink. Dentition is intact. NECK: Shows anterior throat supple without palpable lymphadenopathy noted. Swallow reflex symmetrical. CHEST: Shows normal on inspection. Breath sounds are clear bilaterally, no rales or rhonchi. HEART: Shows S1, S2 clear. No murmurs auscultated. ABDOMEN: Soft, nontender, nondistended, obese. No palpable organomegaly is noted. BACK: Shows spine grossly in the midline. Normal-appearing cervical lordotic curvature. There is some increased thoracic kyphosis, some flattening of the lumbar lordotic curvature. Lumbar paraspinous muscles show symmetrical on inspection, on palpation shows some moderate tenderness diffusely throughout the upper, middle and lower distribution of the paraspinous muscles, but without specific trigger points, without radiation of pain. The patient has good rotational motion of the lumbar spine, both laterally as well as extension and flexion without significant difficulty. EXTREMITIES: Lower extremities show deep tendon reflexes 1 in the patellar and tendo calcaneus tendons. Motor exam is 5 on a scale of 5 with right d orsiflexion, extension, quadriceps and hamstring flexion and 5/5 on the left. Peripheral pulses are 1+ posterior tibial. No peripheral edema is noted bilaterally. Lower extremities are warm and dry to touch, equal in color and appearance. SKIN: Shows warm and dry, good turgor. No edema. No sores, rashes or bruising throughout. Procedure: Procedure: We will proceed with a lumbar epiduralOptions were discussed with patient. Patient's old chart was viewed as her current medication regimen updated current review of systems updated today as well. Injection stable fluoroscopic guidance risks were discussed including but not limited to: Bleeding, infection, possibility of epidural hematoma and subsequent neurological compromise, dural puncture, headaches, spinal cord and/or nerve damage, side effects of steroid medication, and poor results regarding pain control. Patient understands and wished to proceed. Patient will return to clinic in approximate 2 weeks for follow-up, was counseled return appointment, activity level, and side effect to be aware of. Medication Injected: Med Injected: Procedure is lumbar epidural steroid injection under local anesthetic using sterile prep and drape at the L4-5 level using C-arm fluoroscopic guidance in both AP and lateral views medications injected is 120 mg Depo-Medrol +10mL preservative-free normal saline and 2 mL contrast- condition at discharge is stable patient tolerated procedure well had no complications. Condition at Discharge: Condition at Discharge: Condition at discharge is stable, patient tolerated procedure well and had no complications. POOL IZAGUIRRE MD Jun 24, 2021 14:14
--- NOTE | 2021-06-24 14:14 | PDOC4 ---
Procedure Note: ICD 10 Code: ICD 10 Code: M54.16 M51.36 Procedure Note: Patient was consented for lumbar epidural steroid injection with fluoroscopic guidance. Risks were discussed including but not limited to: Bleeding, infection, possibility of epidural hematoma and subsequent neurological compromise, dural puncture, headaches, spinal cord and/or nerve damage, side effects of steroid medication, and poor results regarding pain control. Patient understands and wished to proceed. Procedure is lumbar epidural steroid injection under local anesthetic using sterile prep and drape at the L4-5 level using C-arm fluoroscopic guidance in both AP and lateral views medications injected is 120 mg Depo-Medrol +10mL preservative-free normal saline and 2 mL contrast- condition at discharge is stable patient tolerated procedure well had no complications. POOL IZAGUIRRE MD Jun 24, 2021 14:14
== END | disposition home or self-care (01) ==
LOC: PNCL 13:26
PROVIDERS: ATTEND Anesthesiology
DX: M51.16 Intervertebral disc disorders with radiculopathy, lumbar region (principal); M50.10 Cervical disc disorder with radiculopathy, unspecified cervical region; Z79.899 Other long term (current) drug therapy; Z88.8 Allergy status to other drugs, medicaments and biological substances
CPT/HCPCS: 62323; J1030; J1040; Q9965

== ENCOUNTER → 2021-07-10 | Outpatient (CLI) | payer OTHER ==
[~2021-07-10] MED LIST changes: -IOHEXOL 180 MG/ML 10 ML VIAL. ONE; -methylPREDNISolone ACETATE 40 MG/ML VIAL. ONE; -methylPREDNISolone ACETATE 80 MG/ML VIAL. ONE
--- NOTE | 2021-07-10 09:27 | PDOC ---
Progress Note - Pain Clinic Date of Service: DOS: DATE: 07/10/21 TIME: 09:23 Diagnosis: Dx: Lumbar radiculopathy with lumbar degenerative disease Cervical radiculopathy with cervical degenerative disease and cervical herniated disc History or Present Illness: HPI: 56-year-old female returns for follow-up status post lumbar epidural steroid injection x1. Patient reports about 80% improvement initially pain in the low back and left leg now returning patient reports it was severe enough that she presented to the emergency department on July 03 and MRI scan was done which were discussed the results of that with the patient today showing at L4-5 disc bulge with extension of the left neural foramen moderate facet arthropathy mild left lateral recess and minimal spinal canal stenosis mild right and mild to moderate left neuroforaminal narrowing. Patient reports the leg is gotten somewhat better since the visit to the emergency department in the MRI scan but still significant pain low back posterior gluteus lateral thigh anterior thigh medial thigh medial lower leg and medial calf and into the foot on the medial aspect patient reports a 10 on scale 10 is worst is 10 on average 7 its least is a 7 today patient reports no loss of motor function but significant fatigability the left lower extremity with walking and standing. Patient reports while the pain is doing better it is still significant in the left leg with activity patient is scheduled to start physical therapy in approximately 1 week. Patient reports no bowel or bladder incontinence. Physical Exam: VS: Blood pressure 137/85 pulse 74 respirations 18 temperature 97.9 F weight is 239 pounds height is 69 inches. PE: PHYSICAL EXAMINATION: GENERAL: The patient is awake, alert, oriented, appropriate, very pleasant in demeanor HEENT: Shows normocephalic, atraumatic. Extraocular movements are intact and symmetrical. Oral cavity: Mucous membranes moist and pink. Dentition is intact. NECK: Shows anterior throat supple without palpable lymphadenopathy noted. Swallow reflex symmetrical. CHEST: Shows normal on inspection. Breath sounds are clear bilaterally. HEART: Shows S1, S2 clear. No murmurs auscultated. ABDOMEN: Soft, nontender, nondistended, obese. No palpable organomegaly is noted. BACK: Shows spine grossly in the midline. Normal-appearing cervical lordotic curvature. There is slightly increased thoracic kyphosis, some minor flattening of the lumbar lordotic curvature. Lumbar paraspinous muscles show symmetrical on inspection, on palpation shows some moderate tenderness diffusely throughout the upper, middle and lower distribution of the paraspinous muscles, but without specific trigger points, without radiation of pain. The patient has good rotational motion of the lumbar spine, both laterally as well as extension and flexion without significant difficulty. No tenderness over the spinous processes, sacrum or sacroiliac regions. EXTREMITIES: Lower extremities show deep tendon reflexes 1+ in the patellar and tendo calcaneus tendons. Motor exam is 5 on a scale of 5 with right dorsiflexion, extension, quadriceps and hamstring flexion and 4/5 on the left. Peripheral pulses are 1+ posterior tibial. No peripheral edema is noted bilaterally. Lower extremities are warm and dry to touch, equal in color and appearance. SKIN: Shows warm and dry, good turgor. No edema. No sores, rashes or bruising throughout. Procedure: Procedure: Options were discussed with patient. Patient chart reviews her current medication regimen updated review of systems updated today as well. We will prescribe Medrol Dosepak, with instructions side effects aware discussed, patient will follow up after Medrol Dosepak is completed also after physical therapy is initiated next week. Medication Injected: Med Injected: None Condition at Discharge: Condition at Discharge: Condition at discharge is stable. POOL IZAGUIRRE MD Jul 10, 2021 09:27
== END | disposition home or self-care (01) ==
LOC: PNCL 08:58
PROVIDERS: ATTEND Anesthesiology
DX: M51.16 Intervertebral disc disorders with radiculopathy, lumbar region (principal); M50.10 Cervical disc disorder with radiculopathy, unspecified cervical region; Z79.899 Other long term (current) drug therapy; Z88.8 Allergy status to other drugs, medicaments and biological substances
CPT/HCPCS: 99212; G0463